=== PATIENT | female | born 1945 | race African-American/Black ===

== ENCOUNTER → 2017-02-07 | Outpatient (CLI) | payer MEDICARE, OTHER ==
--- NOTE | 2017-02-08 09:05 | EKG REPORT ---
SEVERITY:- NORMAL ECG - SINUS RHYTHM : Confirmed by: Ashwini Sanchez MD 08-Feb-2017 09:04:09
== END ==
LOC: OD 10:31
PROVIDERS: ATTEND Anesthesiology Pain Medicine
DX: G89.4 Chronic pain syndrome (principal); Z79.899 Other long term (current) drug therapy
CPT/HCPCS: 93005; 93010

== ENCOUNTER → 2018-04-02 | Outpatient (CLI) | payer MEDICARE, OTHER ==
--- NOTE | 2018-04-02 14:05 | WOMENS IMAGING REPORT ---
EXAM DESCRIPTION: 3D SCREENING MAMMO BILAT COMPLETED DATE/TIME: 04/02/2018 1:41 pm REASON FOR STUDY: SCREENING MAMMO Z12.31 ENCNTR SCREEN MAMMOGRAM FOR MALIGNANT NEOPLASM OF ROSIO COMPARISON: Multiple since 2013 TECHNIQUE: Standard craniocaudal and mediolateral oblique views of each breast recorded using digita l acquisition and breast tomosynthesis. LIMITATIONS: None. FINDINGS: No masses, calcifications or architectural distortion. No areas of suspicion. Read with the assistance of CAD. .[facility] - R2 Cenova Version 1.3 .[facility] - R2 Cenova Version 1.3 .[facility] - R2 Cenova Version 2.4 .[facility] - R2 Cenova Version 2.4 .[facility] - R2 Cryptanalyst Version 9.2 IMPRESSION: NORMAL MAMMOGRAM. BIRADS 1. BREAST DENSITY: b. There are scattered areas of fibroglandular density. BIRAD: 1 NEGATIVE RECOMMENDATION: ROUTINE SCREENING Please continue yearly bilateral screening mammography/tomosynthesis in May 2018 COMMENT: The patient has been notified of the results by letter per [place] requirements. Additional no tification policies are in place for contacting patient with suspicious or incomplete findings. Quality ID #[id number]: The [employer] recommends an annual screening mammogram for women aged 40 years or over. This facility utilizes a reminder system to ensure that all patients receive reminder letters, and/or direct phone calls for appointments. This includes reminders for routine scr eening mammograms, diagnostic mammograms, or other Breast Imaging Interventions when appropriate. Th is patient will be placed in the appropriate reminder system. The [employer] (ACR) has developed recommendations for screening MRI of the breast s in certain patient populations, to be used in conjunction with mammography. Breast MRI surveillanc e may be appropriate for women with more than 20% lifetime risk of developing breast cancer as deter mined by genetic testing, significant family history of the disease, or history of mantle radiation f or Hodgkins Disease. ACR Practice Guidelines 2008. DBT Technology DBT is a type of tomographic mammography. With conventional mammography, overlapping breast tissue ma y make lesions difficult to detect, even with good compression. DBT uses an x-ray tube that rotates a round the breast, taking images at different angles. These images are then combined to create thin sl ices of the breast that the radiologist can view as a 3D reconstruction. The [employer] unit can perform full-field digital mammograms (2D imaging); or DBT (3D imaging); or both, in a combination mode that quickly performs both the mammogram and the tomosynthesis scan while the breast is still compressed. PQRS 6045F: Fluoroscopic imaging is not utilized for breast tomosynthesis. TECHNICAL DOCUMENTATION: FINDING NUMBER: (1) ASSESSMENT: (1) JOB ID: [id number] [employer]- All Rights Reserved Reading location - IP/workstation name: [email or web address]
== END ==
LOC: WI 13:14
PROVIDERS: ATTEND Internal Medicine Geriatric Medicine
DX: Z12.31 Encounter for screening mammogram for malignant neoplasm of breast (principal)
CPT/HCPCS: 77063; 77067

== ENCOUNTER → 2019-03-31 | Outpatient (CLI) | payer MEDICARE, OTHER ==
--- NOTE | 2019-03-31 14:55 | WOMENS IMAGING REPORT ---
EXAM DESCRIPTION: 3D SCREENING MAMMO BILAT COMPLETED DATE/TIME: 03/31/2019 10:56 am REASON FOR STUDY: Z12.31 ENCOUNTER FOR SCREENING MAMMOGRAM FOR MALIGNANT NEOPLASM OF BREAST Z12.31 ENCNTR SCREEN MAMMOGRAM FOR MALIGNANT NEOPLASM OF ROSIO COMPARISON: Multiple since 2013 EXAM PARAMETERS: Views: Standard craniocaudal and mediolateral oblique views of each breast recorded using digital acquisition and breast tomosynthesis. Read with the assistance of CAD. .[facility] - R2 Share[employer] Consultant Version 9.2 LIMITATIONS: None. FINDINGS: No suspicious masses, suspicious calcifications or architectural distortion. No areas of c oncern. IMPRESSION: NEGATIVE MAMMOGRAM. BIRADS 1. BREAST DENSITY: b. There are scattered areas of fibroglandular density. BIRAD: ASSESSMENT: 1 NEGATIVE RECOMMENDATION: ROUTINE SCREENING Please continue yearly bilateral screening mammography/tomosynthesis in March 2020 COMMENT: The patient has been notified of the results by letter per MQSA requirements. Additional no tification policies are in place for contacting patient with suspicious or incomplete findings. Quality ID #[id number]: The [employer] recommends an annual screening mammogram for women aged 40 years or over. This facility utilizes a reminder system to ensure that all patients receive reminder letters, and/or direct phone calls for appointments. This includes reminders for routine scr eening mammograms, diagnostic mammograms, or other Breast Imaging Interventions when appropriate. Th is patient will be placed in the appropriate reminder system. TECHNICAL DOCUMENTATION: FINDING NUMBER: (1) ASSESSMENT: (1) JOB ID: [id number] [employer]- All Rights Reserved Reading location - IP/workstation name: [email or web address]
== END ==
LOC: WI 10:15
PROVIDERS: ATTEND Internal Medicine Geriatric Medicine
DX: Z12.31 Encounter for screening mammogram for malignant neoplasm of breast (principal)
CPT/HCPCS: 77063; 77067

== ENCOUNTER 2019-06-02 08:05 | Day surgery (SDC) | payer MEDICARE, OTHER ==
[~2019-06-02 08:05] MED LIST: PROPOFOL INJ 200 MG/20 ML VIAL IV ONE
[2019-06-02 10:35] VITALS: BP 124/69
--- NOTE | 2019-06-02 12:31 | Operative Report ---
Operative Report DATE OF SURGERY: 06/02/19 Operative Report: The risk, benefits and alternatives of the procedure including the risk of bleeding, perforation requiring surgery have been explained to the patient in detail and informed consent has been obtained. Patient is placed in a left, lateral decubital position. Timeout was called. Propofol medication is administered. Rectal examination is done which did not reveal any masses, tears or fissures. An Olympus videoscope was introduced into the patient's rectum. Scope was then carefully advanced all the way to the cecum. Cecum was identified by the usual anatomical landmarks of the ileocecal valve as well as the appendiceal office. Photodocumentation is obtained. Scope was then sequentially pulled back via the rest segments of the colon including the ascending colon, hepatic flexure, transverse colon, splenic flexure, descending colon finally into the rectosigmoid portions of the colon. Retroflexion maneuvers performed. PREOPERATIVE DIAGNOSIS: Surveillance colonoscopy due to history of polyp POSTOPERATIVE DIAGNOSIS: Right side colon inflammation status post biopsy. Internal hemorrhoids OPERATION: Colonoscopy with biopsy SURGEON: CALIN MONCADA ANESTHESIA: LMAC TISSUE REMOVED OR ALTERED: As noted above. COMPLICATIONS: None. ESTIMATED BLOOD LOSS: None. INTRAOPERATIVE FINDINGS: As noted above. PROCEDURE: Patient tolerated the procedure well. No immediate postprocedure complications are noted. Patient is discharged in good condition. Discharge date 06/02/2019. Discharge diet: Regular. Discharge activity: Regular. 2 to 3-week follow-up to discuss findings. Patient is instructed call the office or proceed to the emergency room should there be any further problems or questions. Wait on the pathology. If pathology is negative consider 10-year surveillance colonoscopy
--- NOTE | 2019-06-17 13:08 | PDOC H&P ---
General Chief Complaint: patient is here for screening colonoscopy denies any blood in her stools no family history of colon cancer no changes in her bowel habits - Current Medications/Allergies Home Medications: Pregabalin [Lyrica 100 mg Capsule] 1 tab PO TID 03/27/18 Allergies/Adverse Reactions: No Known Allergies Allergy (Verified 06/02/19 08:08) Past Medical History Cardiac Medical History: Denies: Coronary Artery Disease, Myocardial Infarction, Hypertension Pulmonary Medical History: Denies: Asthma, Bronchitis, Chronic Obstructive Pulmonary Disease (COPD), Pneumonia Neurological Medical History: Denies: Seizures Musculoskeltal Medical History: Denies: Arthritis Hematology: Denies: Anemia Family History Parental Family History Reviewed: Yes Children Family History Reviewed: Unknown Sibling(s) Family History Reviewed.: Unknown Social History Smoking Status: Never Smoker Electronic Cigarette use?: No Frequency of Alcohol Use: None Hx Recreational Drug Use: No Hx Prescription Drug Abuse: No Physical Exam Vital Signs: Temp Pulse Resp BP Pulse Ox 97.8 F 70 16 124/69 100 06/02/19 10:25 06/02/19 10:25 06/02/19 10:25 06/02/19 10:25 06/02/19 10:25 General appearance: PRESENT: no acute distress, well-developed, well-nourished Head exam: PRESENT: atraumatic, normocephalic Eye exam: PRESENT: EOMI, PERRLA, scleral icterus Mouth exam: PRESENT: moist, neck supple Neck exam: PRESENT: meningismus. ABSENT: tenderness, thyromegaly Respiratory exam: PRESENT: symmetrical, unlabored. ABSENT: tachypnea GI/Abdominal exam: PRESENT: normal bowel sounds, soft, tenderness. ABSENT: Taylor's sign, rebound, rigid Extremities exam: ABSENT: joint swelling, pedal edema Musculoskeletal exam: PRESENT: full ROM Neurological exam: PRESENT: alert, awake, CN II-XII grossly intact. ABSENT: altered Skin exam: PRESENT: normal color, urticaria. ABSENT: vesicles Impression/Plan Impression: proceed with colonoscopy Risks, benefits and alternatives are reviewed she is agreeable to proceed with Propofol sedation
== END 2019-06-02 10:45 | disposition home or self-care (01) ==
LOC: END 08:05
PROVIDERS: ATTEND Internal Medicine Gastroenterology
DX: Z12.11 Encounter for screening for malignant neoplasm of colon (principal); K52.9 Noninfective gastroenteritis and colitis, unspecified; Z86.010 Personal history of colon polyps; K64.8 Other hemorrhoids; Z88.8 Allergy status to other drugs, medicaments and biological substances
CPT/HCPCS: 45380; 88305 ×2; 00812; J2704; 812